=== PATIENT | female | born 2000 | race Caucasian/White ===

== ENCOUNTER 2019-11-19 00:54 | Emergency (ER) | payer OTHER ==
[2019-11-19] MEDS ORDERED: ONDANSETRON 4 MG TAB.RAPDIS PO ONE (01:26)
--- NOTE | 2019-11-19 01:28 | ER Document Report ---
ED Medical Screen (RME) - General Stated Complaint: ALEERGIC REACTION Time Seen by Provider: 11/19/19 01:25 Primary Care Provider: BETTY HADDAD MD [Primary Care Provider] - Follow up as needed Mode of Arrival: Ambulatory Information source: Patient Notes: Patient is a 19-year-old female coming in today with dysuria, frequency, hematuria, slight mild low back pain that started earlier today. This evening while she was going to the bathroom she started feeling very clammy and lightheaded and felt like she was going to pass out. She has no fevers or shaking chills. She has nausea without vomiting. She has no back or flank pain presently. General exam: No acute distress Abdomen positive for suprapubic tenderness no CVA tenderness Musculoskeletal moves all extremities well Neuro no focal neurologic deficit I have greeted and performed a rapid initial assessment of this patient. A comprehensive ED assessment and evaluation of the patient, analysis of test re sults and completion of the medical decision making process will be conducted by additional ED providers. TRAVEL OUTSIDE OF THE [place] IN LAST 30 DAYS: No - Related Data Allergies/Adverse Reactions: Penicillins Allergy (Verified 04/05/12 17:49) Past Medical History - Immunizations Immunizations up to date: Yes Hx Diphtheria, Pertussis, Tetanus Vaccination: Yes - Up to Date Physical Exam - Vital signs Vitals: Temp Pulse Resp BP Pulse Ox 97.8 F 95 16 119/48 L 99 11/19/19 00:59 11/19/19 00:59 11/19/19 00:59 11/19/19 00:59 11/19/19 00:59 Course - Vital Signs Vital signs: Temp Pulse Resp BP Pulse Ox 97.8 F 95 16 119/48 L 99 11/19/19 00:59 11/19/19 00:59 11/19/19 00:59 11/19/19 00:59 11/19/19 00:59 Doctor's Discharge - Discharge Referrals: BETTY HADDAD MD [Primary Care Provider] - Follow up as needed
[2019-11-19 02:44] LABS: ALBUMIN 4.5 g/dL (3.5-5.0); ALKALINE PHOSPHATASE 63 U/L (38-126); ANION GAP 16 (5-19); APPEARANCE,URINE CLOUDY; ASPARTATE AMINO TRANSFERASE 24 U/L (14-36); BILIRUBIN,TOTAL 0.6 mg/dL (0.2-1.3); BILIRUBIN,URINE NEGATIVE (NEGATIVE); BLOOD UREA NITROGEN 11 mg/dL (7-20); CALCIUM 10.1 mg/dL (8.4-10.2); CARBON DIOXIDE 22 mmol/L (22-30); CHLORIDE 100 mmol/L (98-107); COLOR,URINE AMBER; GLUCOSE 123 mg/dL (75-110); GLUCOSE, URINE NEGATIVE (NEGATIVE); KETONES,URINE NEGATIVE (NEGATIVE); POTASSIUM 4.5 mmol/L (3.6-5.0); PROTEIN,URINE >=500 mg/dL (NEGATIVE); TOTAL PROTEIN 7.7 g/dL (6.3-8.2); URINE SPECIFIC GRAVITY 1.019
[2019-11-19 03:39] LABS: HEMATOCRIT 41.5 % (36.0-47.0); HEMOGLOBIN 14.3 g/dL (12.0-15.5); MEAN CORPUSCULAR HEMOGLOBIN 28.5 pg (27.0-33.4); MEAN CORPUSCULAR HGB CONC 34.5 g/dL (32.0-36.0); MEAN CORPUSCULAR VOLUME 83 fl (80-97); PLATELET COUNT 285 10^3/uL (150-450); RED BLOOD COUNT 5.03 10^6/uL (3.72-5.28); RED CELL DISTRIBUTION WIDTH 12.7 % (11.5-14.0); WHITE BLOOD COUNT 20.6 10^3/uL (4.0-10.5)
[2019-11-19 04:06] LABS: ABSOLUTE LYMPHOCYTES# (MANUAL) 1.2 10^3/uL (0.5-4.7); ABSOLUTE MONOCYTES # (MANUAL) 0.6 10^3/uL (0.1-1.4); BASOPHILS % (MANUAL) 0 % (0-2); EOSINOPHILS % (MANUAL) 0 % (0-6); LYMPHOCYTES % (MANUAL) 6 % (13-45); MONOCYTES % (MANUAL) 3 % (3-13); SEGMENTED NEUTROPHILS % (MAN) 91 % (42-78); TOTAL CELLS COUNTED 100
[2019-11-19 04:07] LABS: OVALOCYTES SLIGHT; PLATELET COMMENT ADEQUATE; POIKILOCYTOSIS SLIGHT; POLYCHROMASIA SLIGHT; TOXIC GRANULATION SLIGHT
[2019-11-19 04:45] VITALS: BP 111/56
--- NOTE | 2019-11-19 11:30 | RADIOLOGY REPORT (SQ) ---
EXAM DESCRIPTION: CT ABD/PELVIS NO ORAL OR IV IMAGES COMPLETED DATE/TIME: 11/19/2019 11:20 am REASON FOR STUDY: rlq pain COMPARISON: None. TECHNIQUE: CT scan of the abdomen and pelvis performed without intravenous or oral contrast. Images reviewed with lung, soft tissue, and bone windows. Reconstructed coronal and sagittal MPR images revi ewed. All images stored on PACS. All CT scanners at this facility use dose modulation, iterative reconstruction, and/or weight based d osing when appropriate to reduce radiation dose to as low as reasonably achievable (ALARA). [facility]: Dose Right [facility]: CareDose [facility]: Dose Right [facility]: Teradose 4D [facility]: Paradial RADIATION DOSE: CT Rad equipment meets quality standard of care and radiation dose reduction techniq ues were employed. CTDIvol: 5.6 mGy. DLP: 266 mGy-cm.mGy. LIMITATIONS: None. FINDINGS: LOWER CHEST: No significant findings. No nodules or infiltrates. NON-CONTRASTED LIVER, SPLEEN, ADRENALS: Evaluation limited by lack of IV contrast. No identified sign ificant masses. PANCREAS: No masses. No peripancreatic inflammatory changes. GALLBLADDER: No identified stones by CT criteria. No inflammatory changes to suggest cholecystitis. RIGHT KIDNEY AND URETER: No suspicious masses. Assessment limited by lack of IV contrast. No signif icant calcifications. No hydronephrosis or hydroureter. LEFT KIDNEY AND URETER: No suspicious masses. Assessment limited by lack of IV contrast. No signifi cant calcifications. No hydronephrosis or hydroureter. AORTA AND RETROPERITONEUM: No aneurysm. No retroperitoneal masses or adenopathy. BOWEL AND PERITONEAL CAVITY: No obvious masses or inflammatory changes. No free fluid. APPENDIX: Normal. PELVIS, BLADDER, AND ABDOMINAL WALL:No abnormal masses. No free fluid. Bladder normal. BONES: No significant findings. OTHER: No other significant finding. IMPRESSION: NO SIGNIFICANT OR ACUTE PROCESS IN THE ABDOMEN OR PELVIS. COMMENT: Quality ID # [id number]: Final reports with documentation of one or more dose reduction techniques (e.g., Automated exposure control, adjustment of the mA and/or kV according to patient size, use of iterative reconstruction technique) TECHNICAL DOCUMENTATION: JOB ID: [id number] 2010 [employer]- All Rights Reserved Reading location - IP/workstation name: [email or web address]
[2019-11-19] MEDS ORDERED: LEVOFLOXACIN 500 MG TABLET PO ONE (12:03)
--- NOTE | 2019-11-19 12:45 | ER Document Report ---
ED General - General Chief Complaint: Urinary Problem Stated Complaint: ALEERGIC REACTION Time Seen by Provider: 11/19/19 01:25 Primary Care Provider: BETTY HADDAD MD [Primary Care Provider] - Follow up as needed Mode of Arrival: Ambulatory Information source: Patient TRAVEL OUTSIDE OF THE [place] IN LAST 30 DAYS: No - HPI Notes: Patient presents with lower abdominal pain nausea and some vomiting. She states it started last night. She states she was having pain with urination and took some [id number] medications. After taking these she became nauseous and had lower abdominal crampy pain. She states she does feel better now. The pain was cramping in nature radiated across both sides of the abdomen. It was worse with urination and better without. It was moderate to severe in intensity. - Related Data Allergies/Adverse Reactions: Penicillins Allergy (Verified 11/19/19 02:24) Home Medications: CONTROL Past Medical History - General Information source: Patient - Social History Smoking Status: Never Smoker Frequency of alcohol use: None Drug Abuse: None Family History: Reviewed & Not Pertinent - Immunizations Immunizations up to date: Yes Hx Diphtheria, Pertussis, Tetanus Vaccination: Yes - Up to Date Review of Systems - Review of Systems Constitutional: denies: Chills, Fever Cardiovascular: denies: Chest pain, Palpitations Respiratory: denies: Cough, Short of breath -: Yes All other systems reviewed and negative Physical Exam - Vital signs Vitals: Temp Pulse Resp BP Pulse Ox 97.8 F 95 16 119/48 L 99 11/19/19 00:59 11/19/19 00:59 11/19/19 00:59 11/19/19 00:59 11/19/19 00:59 Interpretation: Normal - General General appearance: Appears well, Alert - HEENT Head: Normocephalic, Atraumatic Eyes: Normal Pupils: PERRL - Respiratory Respiratory status: No respiratory distress Chest status: Nontender Breath sounds: Normal Chest palpation: Normal - Cardiovascular Rhythm: Regular Heart sounds: Normal auscultation Murmur: No - Abdominal Inspection: Normal Distension: No distension Bowel sounds: Normal Tenderness: Tender - Patient has bilateral lower quadrant tenderness to palpation slightly worse on the right. Organomegaly: No organomegaly - Back Back: Normal, Nontender - Extremities General upper extremity: Normal inspection, Nontender, Normal color, Normal ROM, Normal temperature General lower extremity: Normal inspection, Nontender, Normal color, Normal ROM, Normal temperature, Normal weight bearing. No: Danna's sign - Neurological Neuro grossly intact: Yes Cognition: Normal Orientation: AAOx4 Melissa Coma Scale Eye Opening: Spontaneous Higgins Coma Scale Verbal: Oriented Higgins Coma Scale Motor: Obeys Commands Melissa Coma Scale Total: 15 Speech: Normal Motor strength normal: LUE, RUE, LLE, RLE Sensory: Normal - Psychological Associated symptoms: Normal affect, Normal mood - Skin Skin Temperature: Warm Skin Moisture: Dry Skin Color: Normal Course - Re-evaluation Re-evalutation: 11/19/19 12:39 Patient presents with bilateral lower quadrant abdominal pain. She has no evidence of appendicitis. CT scan is unremarkable. She does have a significantly elevated white blood cell count. She does not have any vaginal discharge. However I have a GC and chlamydia pending in the meantime I will treat her with doxycycline and Rocephin. - Vital Signs Vital signs: Temp Pulse Resp BP Pulse Ox 98.8 F 72 16 111/56 L 99 11/19/19 04:36 11/19/19 04:36 11/19/19 04:36 11/19/19 04:36 11/19/19 04:36 - Laboratory Result Diagrams: 11/19/19 03:01 11/19/19 02:19 Laboratory results interpreted by me: 11/19/19 11/19/19 11/19/19 02:19 02:19 03:01 WBC 20.6 H Seg Neuts % (Manual) 91 H Lymphocytes % (Manual) 6 L Abs Neuts (Manual) 18.7 H Glucose 123 H Urine Protein >=500 H Urine Blood LARGE H Urine Nitrite (Reflex) POSITIVE H Urine Urobilinogen 4.0 H Leukocyte Esterase Rfl TRACE H - Diagnostic Test Radiology reviewed: Image reviewed, Reports reviewed Discharge - Discharge Clinical Impression: UTI (urinary tract infection) Qualifiers: Urinary tract infection type: acute cystitis Hematuria presence: with hematuria Qualified Code(s): N30.01 - Acute cystitis with hematuria Condition: Stable Disposition: HOME, SELF-CARE Instructions: Urinary Tract Infection ([facility]) Prescriptions: Hydrocodone/Acetaminophen [Shelbina 5-325 mg Tablet] 1 tab PO Q6 PRN 3 Days #12 tablet PRN Reason: For Pain Doxycycline Hyclate [Vibramycin 100 mg Tablet] 100 mg PO Q12 10 Days #20 tablet Ondansetron [Zofran Odt 4 mg Tablet] 1 - 2 tab PO Q4H PRN #15 tab.rapdis PRN Reason: For Nausea/Vomiting Forms: Return to Work Referrals: BETTY HADDAD MD [Primary Care Provider] - Follow up in 3-5 days
[2019-11-19 13:25] LABS: CHLAM PCR NOT DETECTED (NOT DETECT)
== END 2019-11-19 13:41 | disposition home or self-care (01) ==
LOC: ER 00:54
DX: N30.01 Acute cystitis with hematuria (principal); R11.2 Nausea with vomiting, unspecified; Z79.3 Long term (current) use of hormonal contraceptives; Z88.0 Allergy status to penicillin
CPT/HCPCS: 99285; 36415; 87086; 85025; 81025; 87088; 80053; 81001; 87491; 87591; 74176; S0119; 87186